=== PATIENT | male | born 1940 | race African-American/Black ===

== ENCOUNTER 2017-08-26 20:02 | Emergency (ER) | payer OTHER, BC ==
[2017-08-26 20:17] VITALS: BP 132/80; PULSE 71; TEMP 97.7; BMI 20.3
--- NOTE | 2017-08-26 20:17 | PDOC ---
Rapid Medical Evaluation Medical Evaluation: Allergies Allergy/AdvReac Type Severity Reaction Status Date / Time No Known Allergies Allergy Verified 11/18/11 02:40 08/26/17 20:07 I have performed a brief in-person evaluation of this patient. The patient presents with a chief complaint of: "My BP is high." Pertinent physical exam findings: PULM: wet unproductive cough. Lungs CTAB. Speaking full sentences. CARD: S1S2 present. No murmur, rub or gallop. No JVD. Neuro: CN 2-12 intact. PERRLA I have ordered the following: CXR, CBC, CMP, UA The patient will proceed to the ED for further evaluation.
--- NOTE | 2017-08-27 17:03 | EKG ---
Test Reason : Blood Pressure : / mmHG Vent. Rate : 067 BPM Atrial Rate : 067 BPM P-R Int : 210 ms QRS Dur : 132 ms QT Int : 462 ms P-R-T Axes : 073 -61 052 degrees QTc Int : 488 ms SINUS RHYTHM WITH SINUS ARRHYTHMIA WITH 1ST DEGREE A-V BLOCK RIGHT BUNDLE BRANCH BLOCK LEFT ANTERIOR FASCICULAR BLOCK BIFASCICULAR BLOCK POSSIBLE INFERIOR INFARCT (CITED ON OR BEFORE 19-NOV-2011) ABNORMAL ECG WHEN COMPARED WITH ECG OF 19-NOV-2011 08:20, ID INTERVAL HAS INCREASED (RBBB AND LEFT ANTERIOR FASCICULAR BLOCK) IS NOW PRESENT Confirmed by ANUJ JOHNS MD ([id number]) on 08/27/2017 5:02:36 PM Referred By: Confirmed By:ANUJ JOHNS MD
== END 2017-08-26 23:15 | disposition left against medical advice (07) ==
LOC: JER 20:02
DX: Z53.21 Procedure and treatment not carried out due to patient leaving prior to being seen by health care provider (principal)
CPT/HCPCS: 93005; 93010; 99281-25